=== PATIENT | male | born 1965 | race Caucasian/White ===

== ENCOUNTER 2024-03-31 05:29 | Inpatient (IN) | payer OTHER ==
[2024-03-31] VITALS (31 sets, daily range): BP systolic 108–164; BP diastolic 65–93; PULSE 16–106; RESP 12–23; TEMP 97.9–98.3; O2SAT 90–99
[~2024-03-31] VITALS: Ht 165.1 cm; Wt 76.9 kg
[~2024-03-31 05:29] MED LIST: AMLO10TA PO; ASPI81TA52 PO; LISI10TA27 PO; METF-438 PO; PIOG45TA65 PO; ROSU40TA71 PO; SITA100T11 PO
[2024-03-31] MEDS: albuterol 2.5 MG/3 ML nebule NEB ONE (05:30)
[2024-03-31] MEDS: cefazolin 2gm/D5W 100mL 100 ML IV ONE (05:30)
[2024-03-31] MEDS: famotidine 20mg tablet PO ONE (06:36)
[2024-03-31] MEDS: vancomycin/NS 1 GM in NS 250 ML IV ONE (06:36)
[2024-03-31] MEDS: tranexamic acid 650mg tablet PO ONE (06:36)
[2024-03-31] MEDS: ringers solution, lacted 1,000 ML IV SCH ×2 (06:37→09:55)
[2024-03-31] MEDS: BUPIVAcaine 0.5% inj/PF 30 ML ONE (06:47)
[2024-03-31] MEDS: ROPIVAcaine 0.5% (5mg/ml) 30ml vial ONE (07:17)
[2024-03-31] MEDS ORDERED: sevoflurane 250ml liquid IH ONE (08:10)
[2024-03-31] MEDS ORDERED: MIDAZolam 1 MG/ML 5ML VIAL ONE (08:17)
[2024-03-31] MEDS ORDERED: fentaNYL/PF 50MCG/1 ML 2ML syringe ONE ×2 (08:17→09:08)
[2024-03-31] MEDS ORDERED: propofol inj 20 ML IV ONE (08:20)
[2024-03-31] MEDS ORDERED: LIDOcaine 1%/PF 5ML 10 MG/ML VIAL ONE (08:20)
[2024-03-31] MEDS ORDERED: ROPIVAcaine 0.5% (5mg/ml) 30ml vial ONE (09:11)
[2024-03-31] MEDS ORDERED: dexamethasone sod phosphate 4mg/ml inj. ONE (09:11)
[2024-03-31] MEDS ORDERED: ePHEDrine 50MG/ML INJ. ONE (09:25)
[2024-03-31] MEDS ORDERED: meperidine/PF 25mg/ml syringe IV PRN ×3 (09:55)
[2024-03-31] MEDS ORDERED: ROPIVAcaine 0.2% (10 MG/5 ML) BOLUS INJECTION INTERSCALE PRN (09:55)
[2024-03-31] MEDS ORDERED: morphine 4 MG/ML inj SYRINge IV PRN (09:55)
[2024-03-31] MEDS ORDERED: ondansetron/PF 4mg/2ml inj IV PRN ×2 (09:55→10:40)
[2024-03-31] MEDS ORDERED: enalaprilat dihydrate 2.5mg/2ml vial IV PRN (09:55)
[2024-03-31] MEDS ORDERED: proCHLORperazine 10 MG/2 ml inj IV PRN (09:55)
[2024-03-31] MEDS ORDERED: labetalol 20mg/4ml (5mg/ml) syringe IV PRN (09:55)
[2024-03-31] MEDS ORDERED: morphine 2 MG/ML inj. syringe IV PRN (09:55)
[2024-03-31] MEDS ORDERED: oxyCODONE IR 5mg (immed. release) tablet PO PRN (10:40)
[2024-03-31] MEDS ORDERED: bisacodyl 10mg suppository rectal RC PRN (10:40)
[2024-03-31] MEDS ORDERED: magnesium hydroxide 30ml (MOM) UD suspension PO PRN (10:40)
[2024-03-31] MEDS ORDERED: HYDROmorphone inj. 0.5 MG/0.5 ML DISP.SYRIN IV PRN (10:40)
[2024-03-31] MEDS ORDERED: acetaminophen 325mg tablet PO PRN (10:40)
[2024-03-31] MEDS ORDERED: diphenhydrAMINE 25mg capsule PO PRN ×2 (10:40)
[2024-03-31] MEDS: ROPIVAcaine 0.2%/PF PUMP/bolus 545 ML INTERSCALE SCH (11:22)
[2024-03-31] MEDS: potassium cl 20mEq in 1/2 NS 1,000 ML IV SCH (13:58)
[2024-03-31] MEDS: acetaminophen 325mg tablet PO SCH (15:47)
[2024-03-31] MEDS: ceFAZolin/D5W- 1GM premix 50 ML IV SCH (15:49)
[2024-03-31] MEDS: HYDROmorphone 1 mg/ml syringe IV PRN (20:45)
[2024-03-31] MEDS: metFORMIN 500mg tablet PO SCH (20:45)
[2024-03-31] MEDS: sennosides 8.6mg tablet PO SCH (20:46)
[2024-03-31] MEDS: vancomycin/NS 1 GM ADD-VANTAGE 250 ML IV SCH (20:47)
[2024-04-01] MEDS: oxyCODONE IR 5mg (immed. release) tablet PO PRN (00:22)
[2024-04-01 06:13] LABS: BASOPHILS % (AUTO) 0.2 % (0-1); EOSINOPHILS # (AUTO) 0.1 X10'3 (0-0.9); EOSINOPHILS % (AUTO) 0.4 % (0-6); HEMOGLOBIN 10.9 g/dl (14.0-17.9); LYMPHOCYTES # (AUTO) 2.3 X10'3 (1.1-4.8); LYMPHOCYTES % (AUTO) 14.3 % (21-51); MEAN CORPUSCULAR HEMOGLOBIN 31.8 PG (27.0-31.0); MEAN CORPUSCULAR HGB CONC 33.2 g/dL (33.0-36.5); MEAN PLATELET VOLUME 8.1 FL (7.4-10.4); MONOCYTES # (AUTO) 1.1 X10'3 (0-0.9); NEUTROPHILS # (AUTO) 12.6 X10'3 (1.8-7.7); NEUTROPHILS % (AUTO) 78.1 % (42-75); PLATELET COUNT 236 X10'3 (140-440); RED BLOOD COUNT 3.44 X10'6 (4.70-6.10); RED CELL DISTRIBUTION WIDTH 12.8 % (11.5-14.5); WHITE BLOOD COUNT 16.1 X10'3 (4.5-11.0)
[2024-04-01 06:25] LABS: ANION GAP 7 (8-16); CHLORIDE 105 MMOL/L (99-107); POTASSIUM 3.8 MMOL/L (3.5-5.1); SODIUM 138 MMOL/L (135-145); TOTAL CARBON DIOXIDE 25.8 MMOL/L (24-32)
[2024-04-01 07:18] VITALS: BP 155/88; PULSE 85; RESP 19; TEMP 97.5; O2SAT 96
[2024-04-01 07:30] VITALS: RESP 19; O2SAT 96
[2024-04-01] MEDS: celeCOXIB 100mg capsule PO SCH ×2 (07:30→20:10)
[2024-04-01] MEDS: aspirin 325mg tablet PO SCH (07:31)
[2024-04-01] MEDS: atorvastatin 20mg tablet PO SCH (07:31)
[2024-04-01] MEDS: amLODIPine 5mg tablet PO SCH (07:31)
[2024-04-01] MEDS: lisinopril 10 MG tablet PO SCH (07:32)
[2024-04-01] MEDS: pioglitazone 45mg tablet PO SCH (09:00)
[2024-04-01] MEDS: FLU VACC TS2024-25(6MOS UP)/PF 45 MCG/0.5 ML SYRINGE IMVAC ONE (10:54)
[2024-04-01] MEDS: pneumococcal 23-VAL P-sac vacc 25 mcg/0.5ml vial IMVAC ONE (10:54)
[2024-04-01 11:00] VITALS: BP 121/68; PULSE 92; RESP 14; TEMP 98.2; O2SAT 95
[2024-04-01] MEDS ORDERED: DEXTROSE 15 GM of carb/4 tabs (each vial/BOTTLE has 4 tablets) PO PRN ×2 (12:45)
[2024-04-01] MEDS ORDERED: dextrose 50%-water 50ml dispensing syringe IV PRN ×2 (12:45)
[2024-04-01] MEDS ORDERED: glucagon, human recombinant 1mg kit SUBCUT PRN (12:45)
[2024-04-01 14:10] LABS: HEMOGLOBIN A1C 6.4 % (4.5-6.2)
[2024-04-01] MEDS: INSULIN LISPRO 100 UNIT/ML INSULN.PEN MULTI-DOSE SQ SCH (17:00)
[2024-04-01 18:00] VITALS: BP 126/78; PULSE 89; RESP 18; TEMP 98.1; O2SAT 98
[2024-04-01] MEDS: SITAGLIPTIN 100 MG PO SCH (20:59)
[2024-04-01 22:00] VITALS: BP 146/91; PULSE 85; RESP 16; TEMP 98.7; O2SAT 96
[2024-04-02 06:00] VITALS: BP 153/76; PULSE 87; RESP 18; TEMP 97.5; O2SAT 97
[2024-04-02 06:45] LABS: ALANINE AMINOTRANSFERASE 17 U/L (12-78); ALBUMIN 3.3 G/DL (3.4-5.0); ALBUMIN/GLOBULIN RATIO 0.9 (1.1-1.5); ALKALINE PHOSPHATASE 68 IU/L (46-116); ANION GAP 9 (8-16); ASPARTATE AMINO TRANSFERASE 14 U/L (10-37); BILIRUBIN,TOTAL 0.6 MG/DL (0.1-1.0); BLOOD UREA NITROGEN 16 MG/DL (7-18); BUN/CREATININE RATIO 20.8 (10.0-20.0); CHLORIDE 104 MMOL/L (99-107); CREATININE 0.77 MG/DL (0.60-1.10); GLUCOSE 121 MG/DL (70-104); POTASSIUM 4.1 MMOL/L (3.5-5.1); SODIUM 138 MMOL/L (135-145); TOTAL CARBON DIOXIDE 25.1 MMOL/L (24-32); eCRCL 89 ML/MIN; eGFR > 90 ML/MIN
[2024-04-02 06:46] LABS: BASOPHILS # (AUTO) 0.1 X10'3 (0-0.2); BASOPHILS % (AUTO) 0.6 % (0-1); EOSINOPHILS # (AUTO) 0.1 X10'3 (0-0.9); EOSINOPHILS % (AUTO) 0.5 % (0-6); HEMATOCRIT 34.9 % (42.0-52.0); HEMOGLOBIN 11.5 g/dl (14.0-17.9); MEAN CORPUSCULAR HEMOGLOBIN 32.1 PG (27.0-31.0); MEAN CORPUSCULAR HGB CONC 33.1 g/dL (33.0-36.5); MEAN CORPUSCULAR VOLUME 97.1 FL (78-98); MEAN PLATELET VOLUME 8.6 FL (7.4-10.4); MONOCYTES # (AUTO) 0.9 X10'3 (0-0.9); MONOCYTES % (AUTO) 7.5 % (2-12); NEUTROPHILS # (AUTO) 9.4 X10'3 (1.8-7.7); NEUTROPHILS % (AUTO) 75.4 % (42-75); PLATELET COUNT 252 X10'3 (140-440); RED BLOOD COUNT 3.59 X10'6 (4.70-6.10); RED CELL DISTRIBUTION WIDTH 12.6 % (11.5-14.5); WHITE BLOOD COUNT 12.5 X10'3 (4.5-11.0)
[2024-04-02 08:00] VITALS: RESP 18; O2SAT 97
[2024-04-02] MEDS: pneumococcal 23-VAL P-sac vacc 25 mcg/0.5ml vial IMVAC ONE (09:00)
[2024-04-02] MEDS: FLU VACC TS2024-25(6MOS UP)/PF 45 MCG/0.5 ML SYRINGE IMVAC ONE (09:00)
[2024-04-02 10:00] VITALS: BP 143/86; PULSE 93; RESP 14; TEMP 97.7; O2SAT 98
[2024-04-02 18:00] VITALS: BP 140/86; PULSE 96; RESP 14; TEMP 97.3; O2SAT 98
[2024-04-02 20:00] VITALS: RESP 14; O2SAT 98
[2024-04-02] MEDS: acetaminophen 325mg tablet PO PRN (21:00)
[2024-04-02 22:00] VITALS: BP 170/71; PULSE 81; RESP 20; TEMP 97.6; O2SAT 91
[2024-04-03 06:47] LABS: BASOPHILS % (AUTO) 0.4 % (0-1); EOSINOPHILS # (AUTO) 0.1 X10'3 (0-0.9); EOSINOPHILS % (AUTO) 1.1 % (0-6); HEMATOCRIT 34.2 % (42.0-52.0); LYMPHOCYTES # (AUTO) 2.1 X10'3 (1.1-4.8); LYMPHOCYTES % (AUTO) 18.8 % (21-51); MEAN CORPUSCULAR HEMOGLOBIN 33.9 PG (27.0-31.0); MEAN PLATELET VOLUME 8.7 FL (7.4-10.4); NEUTROPHILS % (AUTO) 70.7 % (42-75); PLATELET COUNT 250 X10'3 (140-440); RED BLOOD COUNT 3.52 X10'6 (4.70-6.10); RED CELL DISTRIBUTION WIDTH 12.7 % (11.5-14.5); WHITE BLOOD COUNT 11.4 X10'3 (4.5-11.0)
[2024-04-03 07:51] VITALS: BP_SYST 146; PULSE 82
[2024-04-03 08:00] VITALS: RESP 16; O2SAT 99
[2024-04-03 09:00] LABS: ALANINE AMINOTRANSFERASE 21 U/L (12-78); ALBUMIN/GLOBULIN RATIO 0.8 (1.1-1.5); ALKALINE PHOSPHATASE 67 IU/L (46-116); ANION GAP 10 (8-16); ASPARTATE AMINO TRANSFERASE 19 U/L (10-37); BILIRUBIN,TOTAL 0.5 MG/DL (0.1-1.0); BLOOD UREA NITROGEN 17 MG/DL (7-18); BUN/CREATININE RATIO 22.7 (10.0-20.0); CALCIUM 8.8 MG/DL (8.5-10.1); CHLORIDE 103 MMOL/L (99-107); CREATININE 0.75 MG/DL (0.60-1.10); GLUCOSE 113 MG/DL (70-104); POTASSIUM 3.9 MMOL/L (3.5-5.1); SODIUM 138 MMOL/L (135-145); TOTAL CARBON DIOXIDE 24.9 MMOL/L (24-32); TOTAL PROTEIN 6.7 G/DL (6.4-8.2); eCRCL 91 ML/MIN; eGFR > 90 ML/MIN
[2024-04-03] MEDS ORDERED: CELE-148 PO ×2 (13:04)
[2024-04-03] MEDS ORDERED: ASPI-1 PO (15:47)
[2024-04-03 16:04] VITALS: RESP 16
[2024-04-03] MEDS ORDERED: HYDROcodone/acetaminophen 10/325mg tab PO SCH (20:00)
== END 2024-04-03 16:15 | disposition home or self-care (01) | DRG 483 ==
LOC: PAS IN 05:29 → ORTHO 4S 14:30
PROVIDERS: ADMIT Orthopaedic Surgery; ATTEND Orthopaedic Surgery
PROC: 0LS40ZZ Reposition Left Upper Arm Tendon, Open Approach (ICD-10-PCS; 2024-03-31)
PROC: 3E0T3BZ Introduction of Anesthetic Agent into Peripheral Nerves and Plexi, Percutaneous Approach (ICD-10-PCS; 2024-03-31)
PROC: 3E0T33Z Introduction of Anti-inflammatory into Peripheral Nerves and Plexi, Percutaneous Approach (ICD-10-PCS; 2024-03-31)
PROC: 0RRK00Z Replacement of Left Shoulder Joint with Reverse Ball and Socket Synthetic Substitute, Open Approach (ICD-10-PCS; principal; 2024-03-31 08:10)
DX: M19.012 Primary osteoarthritis, left shoulder (principal); M75.122 Complete rotator cuff tear or rupture of left shoulder, not specified as traumatic; M65.912 Unspecified synovitis and tenosynovitis, left shoulder; I10 Essential (primary) hypertension; E11.9 Type 2 diabetes mellitus without complications
CPT/HCPCS: Z7506; Z7508; 36415; 71045; 73030; 80051; 80053; 82948; 83036; 85025; 90686; 90732; 93005; 97161; 97530; A4565; A4615; A4618; A7000; C1713; C1776; G0378; J0690; J1100; J1171; J1815; J2250; J2405; J2704; J2795; J3010; J3370; J3480; J3490; J7120